=== PATIENT | female | born 1945 | race Caucasian/White ===

== ENCOUNTER → 2017-12-24 | Emergency (ER) | payer OTHER ==
[~2017-12-24] VITALS: Ht 162.6 cm; Wt 79.4 kg
[~2017-12-24] MED LIST: ENALAPRIL HCTZ; GLIMEPIRIDE4 MG; METFORMIN HCL500 MG; NEURONTIN300 MG; SYNTHROID88 MCG; ZOCOR20 MG; [UNRECOGNIZED DRUG - OTHER]
== END | disposition home or self-care (01) ==
LOC: ER 17:53
DX: E11.65 Type 2 diabetes mellitus with hyperglycemia (principal)